=== PATIENT | male | born 1955 | race Caucasian/White ===

== ENCOUNTER 2019-06-28 18:28 | Inpatient (IN) | payer MEDICARE, MEDICAID ==
[~2019-06-28] VITALS: Ht 165.1 cm; Wt 49.5 kg
[~2019-06-28 18:28] MED LIST: ACYC-202 PO; ADV50500 INH; ALBU6.7H9 INH; ASPI-611 PO; BACL20TA PO; CLOP75TA35 PO; IPRA12.94 IH; LISI40TA4 PO; METF500T PO; PANT-47 PO; TIOT18CA7 IH
[2019-06-28] MEDS ORDERED: piperacillin/tazo 3.375gm/50ml 50 ML IV ONE (20:30)
[2019-06-28] MEDS ORDERED: VANCOMYCIN 1gm/H2O 200ml PB 200 ML IV ONE (20:30)
[2019-06-28] MEDS ORDERED: HYDROcodone/acetaminophen 5mg/325mg tablet PO ONE (20:50)
[2019-06-28 21:32] LABS: PARTIAL THROMBOPLASTIN TIME 28 SECONDS (22-32)
[2019-06-28 21:36] LABS: ALANINE AMINOTRANSFERASE 37 U/L (12-78); ALBUMIN 3.2 G/DL (3.4-5.0); ALKALINE PHOSPHATASE 87 IU/L (46-116); ANION GAP 7 (8-16); ASPARTATE AMINO TRANSFERASE 21 U/L (10-37); BILIRUBIN,TOTAL 0.2 MG/DL (0.1-1.0); BLOOD UREA NITROGEN 12 MG/DL (7-18); CALCIUM 8.6 MG/DL (8.5-10.1); CHLORIDE 108 MMOL/L (99-107); GLUCOSE 126 MG/DL (70-104); POTASSIUM 3.7 MMOL/L (3.5-5.1); SODIUM 139 MMOL/L (135-145); TOTAL CARBON DIOXIDE 23.9 MMOL/L (24-32); TOTAL PROTEIN 6.3 G/DL (6.4-8.2); eGFR > 90 ML/MIN
[2019-06-28 21:41] LABS: BASOPHILS % (AUTO) 0.7 % (0-1); EOSINOPHILS # (AUTO) 0.2 X10'3 (0-0.9); EOSINOPHILS % (AUTO) 3.8 % (0-6); HEMATOCRIT 29.6 % (42.0-52.0); HEMOGLOBIN 10.1 g/dl (14.0-17.9); LYMPHOCYTES # (AUTO) 1.7 X10'3 (1.1-4.8); LYMPHOCYTES % (AUTO) 28.5 % (21-51); MEAN CORPUSCULAR HEMOGLOBIN 34.1 PG (27.0-31.0); MEAN CORPUSCULAR HGB CONC 34.1 g/dL (33.0-36.5); MEAN CORPUSCULAR VOLUME 99.9 FL (78-98); MONOCYTES # (AUTO) 0.4 X10'3 (0-0.9); MONOCYTES % (AUTO) 7.4 % (2-12); NEUTROPHILS # (AUTO) 3.6 X10'3 (1.8-7.7); NEUTROPHILS % (AUTO) 59.6 % (42-75); PLATELET COUNT 419 X10'3 (140-440); RED BLOOD COUNT 2.97 X10'6 (4.70-6.10); RED CELL DISTRIBUTION WIDTH 13.3 % (11.5-14.5)
--- NOTE | 2019-06-28 22:00 | NUR ---
Received report from Suzie ROBERTSON from ED. Patient came up to floor via wheelchair. Bed locked & low, call light within reach.
[2019-06-28 22:15] VITALS: BP 165/81
[2019-06-28] MEDS ORDERED: FLO0.4C (23:09)
[2019-06-28] MEDS ORDERED: NORT50CA (23:09)
[2019-06-28] MEDS ORDERED: LIRA0.6P (23:09)
[2019-06-28] MEDS ORDERED: SIMV80TA89 (23:09)
[2019-06-29] VITALS (18 sets, daily range): BP systolic 105–155; BP diastolic 52–77
[2019-06-29] MEDS ORDERED: potassium CL 10mEq/100ml bag 100 ML IV PRN ×2 (00:05)
[2019-06-29] MEDS ORDERED: magnesium Cl slow-release 64mg tablet PO PRN (00:05)
[2019-06-29] MEDS ORDERED: magnesium 2GM in 50ml NS 50 ML IV PRN (00:05)
[2019-06-29] MEDS ORDERED: acetaminophen 325mg tablet PO PRN (00:05)
[2019-06-29] MEDS ORDERED: ondansetron/PF 4mg/2ml inj IV PRN ×2 (00:05→09:55)
[2019-06-29] MEDS ORDERED: magnesium 4gm in 100ml NS 100 ML IV PRN (00:05)
[2019-06-29] MEDS ORDERED: potassium Cl 20 mEq SR tablet PO PRN ×2 (00:05)
[2019-06-29] MEDS ORDERED: MESSAGE TO PHARMACY PO ONE (00:10)
[2019-06-29] MEDS ORDERED: glucagon, human recombinant 1mg kit SUBCUT PRN (00:10)
[2019-06-29] MEDS ORDERED: dextrose 50%-water 50ml dispensing syringe IV PRN ×2 (00:10)
[2019-06-29] MEDS ORDERED: dextrose ORAL solution 15 GM/59 ML bottle PO PRN (00:10)
[2019-06-29] MEDS: normal saline 1000ml 1,000 ML IV SCH ×2 (01:07→19:17)
[2019-06-29] MEDS ORDERED: non-formulary drug (Albuterol Sulfate (Proventil Hfa) 2 PUFFS) INH SCH (02:00)
[2019-06-29] MEDS: HYDROcodone/acetaminophen 5mg/325mg tablet PO PRN ×3 (03:24→12:48)
[2019-06-29] MEDS: HYDROmorphone inj. 0.5 MG/0.5 ML DISP.SYRIN IV PRN ×3 (04:38→17:53)
--- NOTE | 2019-06-29 06:10 | NUR ---
Patient in room [facility] 4012. I have received report from KAVITA ROBERTSON and had the opportunity to ask questions and assume patient care.
--- NOTE | 2019-06-29 06:29 | NUR ---
Problems reprioritized. Patient report given, questions answered & plan of care reviewed with Jessica ROBERTSON.
[2019-06-29] MEDS: K and/or MAG REPLACEMENT MC SCH ×2 (07:32→21:30)
[2019-06-29] MEDS: aspirin 81mg tablet.DR PO SCH (07:33)
[2019-06-29] MEDS: baclofen 10mg tablet PO SCH ×2 (07:33→12:41)
[2019-06-29] MEDS: lisinopril 20mg tablet PO SCH (07:33)
[2019-06-29] MEDS: vancomycin inj. 750 MG in normal saline 250ml IV soln 250 ML IV SCH ×2 (07:47→19:17)
[2019-06-29] MEDS ORDERED: vancomycin/NS 1 GM ADD-VANTAGE 250 ML IV SCH (08:00)
[2019-06-29] MEDS: ipratropium 0.5 MG/2.5ML nebule IH SCH ×3 (08:00→22:22)
[2019-06-29] MEDS: albuterol 2.5 MG/3 ML nebule NEB SCH ×3 (08:00→22:22)
--- NOTE | 2019-06-29 08:07 | NUR ---
DOWN TO THE OR.
[2019-06-29] MEDS ORDERED: sevoflurane 250ml liquid IH ONE (09:23)
[2019-06-29] MEDS ORDERED: midazolam 2 mg/2 ml injection ONE (09:33)
[2019-06-29] MEDS ORDERED: propofol inj 20 ML IV ONE (09:33)
[2019-06-29] MEDS ORDERED: fentaNYL/PF 50MCG/1 ML 2ML syringe ONE (09:33)
[2019-06-29] MEDS ORDERED: LIDOcaine 2% (20mg/ml) 5ml vial ONE (09:34)
[2019-06-29] MEDS ORDERED: BUPIVAcaine/PF 2.5 mg/ml (0.25%) 30ml vial ONE (09:44)
[2019-06-29] MEDS ORDERED: ringers solution, lacted 1,000 ML IV SCH (09:54)
[2019-06-29] MEDS ORDERED: meperidine/PF 25mg/ml syringe IV PRN ×3 (09:55)
[2019-06-29] MEDS ORDERED: morphine 4 MG/ML inj SYRINge IV PRN ×2 (09:55)
[2019-06-29] MEDS ORDERED: proCHLORperazine 10 MG/2 ml inj IV PRN (09:55)
--- NOTE | 2019-06-29 10:30 | NUR ---
ADMITTED TO PACU FROM OR ACCOMPANIED BY ANESTHESIA. INTIAL PHYSICAL ASSESSMENT DONE AND RECORDED. REPORT RECEIVED FROM ANESTHESIA. LEFT AND ELEVATED ON PILLOWS ICE APPLIED.
--- NOTE | 2019-06-29 11:30 | NUR ---
PACU DISCHARGE CRITERIA MET, REPORT GIVEN TO FLOOR. DENIES PAIN OR DISCOMFORT, TRANSFERRED TO ROOM IN STABLE GOOD CONDITION.
--- NOTE | 2019-06-29 16:22 | NUR ---
DM consult: Pt admit with cellulitis of left middle finger now s/p finger amputation today. Pt with A1c 10.3 seen at bedside. Pt reports he has had DM for several years and states he already knows what needs to be done to manage it. Pt states he checks his BG levels 2-3 times a day if he thinks he needs to however will check it less often if he is feeling fine. Pt states he takes his DM medications per rx and sees an MD q month. Pt provided with verbal protein education and written DM education with referral to outpatient DM class with verbal review. Pt agrees to double eggs QD at breakfast and double meat BIDLD, d/w dietary. Pt denies food allergies and reports difficulty chewing d/t missing teeth. Pt diet has been changed to mech soft. Pt agrees to chop all TID d/t surgery, d/w dietary. Pt reports diarrhea d/t medications and agrees to a banana at dinner tonight, d/w dietary. RD contact information provided. Will continue to follow. Addendum: 06/29/19 at [address] Amended: Links added.
[2019-06-29] MEDS: HYDROcodone/acetaminophen 10/325mg tab PO PRN ×2 (16:29→21:27)
--- NOTE | 2019-06-29 18:15 | NUR ---
Problems reprioritized. Patient report given, questions answered & plan of care reviewed with KAVITA ROBERTSON.
[2019-06-29] MEDS: insulin Lispro (HumaLOG) vial - multi-dose SQ SCH (19:10)
[2019-06-29] MEDS: insulin glargine (Lantus) pen - multi-dose SQ SCH (21:00)
[2019-06-29] MEDS: tamsulosin 0.4mg capsule PO SCH (21:27)
[2019-06-29] MEDS: dextrose ORAL solution 15 GM/59 ML bottle PO PRN ×2 (22:03→22:20)
--- NOTE | 2019-06-29 22:40 | NUR ---
Took BS for HS and reading was 73. Patient said he didn't feel well and was shaky. Gave patient a sandwich and rechecked BS and it read 28. Rechecked BS and reading was 31. Patient still awake and orientated. Gave 2 doses of dextrose. Rechecked BS in 15 min and reading was 68. Administered one dose of dextrose. Rechecked BS after 15 min and BS was 60. Administered another dose of dextrose. Rechecked BS 15 min after that dose and BS was 82. Called MD with critical BS results. Gave the patient a few snacks. Will recheck patients BS in the middle of the night.
[2019-06-30 02:00] VITALS: BP 122/48
[2019-06-30] MEDS: albuterol 2.5 MG/3 ML nebule NEB SCH ×4 (02:20→20:11)
[2019-06-30] MEDS: ipratropium 0.5 MG/2.5ML nebule IH SCH ×4 (02:20→20:11)
--- NOTE | 2019-06-30 02:20 | NUR ---
Rechecked patients BS due to being hypoglycemic earlier in shift. BS reading 287.
[2019-06-30] MEDS: HYDROcodone/acetaminophen 10/325mg tab PO PRN ×4 (03:52→20:19)
[2019-06-30 06:13] LABS: ALBUMIN 2.3 G/DL (3.4-5.0); ANION GAP 8 (8-16); BLOOD UREA NITROGEN 11 MG/DL (7-18); BUN/CREATININE RATIO 13.9 (5.4-32.0); CALCIUM 7.4 MG/DL (8.5-10.1); CHLORIDE 105 MMOL/L (99-107); CREATININE 0.79 MG/DL (0.60-1.10); GLUCOSE 325 MG/DL (70-104); MAGNESIUM 1.5 MG/DL (1.5-2.4); POTASSIUM 3.6 MMOL/L (3.5-5.1); SODIUM 137 MMOL/L (135-145); TOTAL CARBON DIOXIDE 23.9 MMOL/L (24-32); eGFR > 90 ML/MIN
[2019-06-30 06:25] LABS: BASOPHILS % (AUTO) 0.6 % (0-1); EOSINOPHILS # (AUTO) 0.2 X10'3 (0-0.9); HEMATOCRIT 26.3 % (42.0-52.0); HEMOGLOBIN 9.1 g/dl (14.0-17.9); LYMPHOCYTES # (AUTO) 0.8 X10'3 (1.1-4.8); LYMPHOCYTES % (AUTO) 13.9 % (21-51); MEAN CORPUSCULAR HEMOGLOBIN 34.4 PG (27.0-31.0); MEAN CORPUSCULAR HGB CONC 34.7 g/dL (33.0-36.5); MEAN CORPUSCULAR VOLUME 99.1 FL (78-98); MEAN PLATELET VOLUME 7.1 FL (7.4-10.4); MONOCYTES # (AUTO) 0.3 X10'3 (0-0.9); MONOCYTES % (AUTO) 5.4 % (2-12); NEUTROPHILS # (AUTO) 4.6 X10'3 (1.8-7.7); NEUTROPHILS % (AUTO) 77.1 % (42-75); PLATELET COUNT 308 X10'3 (140-440); RED BLOOD COUNT 2.65 X10'6 (4.70-6.10); RED CELL DISTRIBUTION WIDTH 13.5 % (11.5-14.5)
--- NOTE | 2019-06-30 06:26 | NUR ---
Problems reprioritized. Patient report given, questions answered & plan of care reviewed with Krysten ROBERTSON.
[2019-06-30 07:05] VITALS: BP 148/62
[2019-06-30] MEDS: K and/or MAG REPLACEMENT MC SCH ×2 (07:24→20:00)
[2019-06-30] MEDS: vancomycin inj. 750 MG in normal saline 250ml IV soln 250 ML IV SCH ×2 (07:41→19:09)
[2019-06-30] MEDS: lisinopril 20mg tablet PO SCH (07:42)
[2019-06-30] MEDS: aspirin 81mg tablet.DR PO SCH (07:42)
[2019-06-30] MEDS: heparin, porcine 5000 units/ml vial SQ SCH ×2 (07:42→20:20)
[2019-06-30] MEDS: HYDROmorphone inj. 0.5 MG/0.5 ML DISP.SYRIN IV PRN (09:13)
[2019-06-30 12:14] VITALS: BP 138/54
[2019-06-30] MEDS ORDERED: HYDROcodone/acetaminophen 10/325mg tab PO PRN (13:45)
--- NOTE | 2019-06-30 14:41 | NUR ---
PT REFUSING INSULIN TREATMENT FOR BLOOD SUGAR OF 261. EDUCATED PT ABOUT DIABETIC MANAGEMENT AND DAMAGING RISKS OF UNTREATED HIGH BLOOD SUGARS. PT HAD EPISODE OF LOW BLOOD SUGAR AFTER INSULIN TREATMENT LAST NIGHT AND STATES "ABSOLUTELY NOT, NOT LETTING THAT HAPPEN AGAIN". WILL CONTINUE TO MONITOR.
[2019-06-30 18:00] VITALS: BP 124/75
[2019-06-30] MEDS ORDERED: VANCOMYCIN LEVEL IV ONE (18:30)
[2019-06-30] MEDS: tamsulosin 0.4mg capsule PO SCH (20:18)
[2019-06-30] MEDS: insulin glargine (Lantus) pen - multi-dose SQ SCH (21:00)
[2019-06-30 22:00] VITALS: BP 120/37
[2019-06-30] MEDS: insulin Lispro (HumaLOG) vial - multi-dose SQ SCH (22:33)
[2019-07-01] MEDS: normal saline 1000ml 1,000 ML IV SCH (00:03)
[2019-07-01] MEDS: albuterol 2.5 MG/3 ML nebule NEB SCH ×2 (02:14→09:29)
[2019-07-01] MEDS: ipratropium 0.5 MG/2.5ML nebule IH SCH ×2 (02:14→09:29)
[2019-07-01] MEDS: HYDROcodone/acetaminophen 10/325mg tab PO PRN ×2 (03:15→11:52)
[2019-07-01 06:03] LABS: BASOPHILS % (AUTO) 0.5 % (0-1); EOSINOPHILS # (AUTO) 0.3 X10'3 (0-0.9); EOSINOPHILS % (AUTO) 5.5 % (0-6); HEMATOCRIT 25.6 % (42.0-52.0); HEMOGLOBIN 8.7 g/dl (14.0-17.9); LYMPHOCYTES # (AUTO) 1.1 X10'3 (1.1-4.8); LYMPHOCYTES % (AUTO) 21.3 % (21-51); MEAN CORPUSCULAR HEMOGLOBIN 33.9 PG (27.0-31.0); MEAN CORPUSCULAR HGB CONC 33.8 g/dL (33.0-36.5); MEAN CORPUSCULAR VOLUME 100.5 FL (78-98); MEAN PLATELET VOLUME 7.3 FL (7.4-10.4); MONOCYTES # (AUTO) 0.3 X10'3 (0-0.9); MONOCYTES % (AUTO) 6.9 % (2-12); NEUTROPHILS # (AUTO) 3.3 X10'3 (1.8-7.7); NEUTROPHILS % (AUTO) 65.8 % (42-75); PLATELET COUNT 299 X10'3 (140-440); RED BLOOD COUNT 2.55 X10'6 (4.70-6.10); RED CELL DISTRIBUTION WIDTH 13.1 % (11.5-14.5)
[2019-07-01 06:04] LABS: ALBUMIN 2.3 G/DL (3.4-5.0); ANION GAP 3 (8-16); BLOOD UREA NITROGEN 10 MG/DL (7-18); BUN/CREATININE RATIO 11.6 (5.4-32.0); CHLORIDE 109 MMOL/L (99-107); CREATININE 0.86 MG/DL (0.60-1.10); GLUCOSE 219 MG/DL (70-104); MAGNESIUM 1.5 MG/DL (1.5-2.4); POTASSIUM 3.8 MMOL/L (3.5-5.1); SODIUM 140 MMOL/L (135-145); TOTAL CARBON DIOXIDE 27.7 MMOL/L (24-32); eGFR 89 ML/MIN
[2019-07-01 06:50] VITALS: BP_SYST 120; BP_SYST 174; BP_DIAS 44; BP_DIAS 90
[2019-07-01] MEDS: aspirin 81mg tablet.DR PO SCH (07:51)
[2019-07-01] MEDS: heparin, porcine 5000 units/ml vial SQ SCH (07:52)
[2019-07-01] MEDS: lisinopril 20mg tablet PO SCH (07:52)
[2019-07-01] MEDS: K and/or MAG REPLACEMENT MC SCH (08:00)
[2019-07-01] MEDS: vancomycin inj. 750 MG in normal saline 250ml IV soln 250 ML IV SCH (08:41)
[2019-07-01] MEDS ORDERED: pneumococcal 23-VAL P-sac vacc 25 mcg/0.5ml vial IMVAC ONE (09:45)
[2019-07-01 10:45] VITALS: BP 92/53
[2019-07-01] MEDS ORDERED: LINE600T12 PO (10:57)
[2019-07-01] MEDS ORDERED: LISI-600 PO (10:57)
[2019-07-01] MEDS ORDERED: SITA100T11 PO (10:57)
[2019-07-01] MEDS ORDERED: BUDE10.22 INH (10:57)
[2019-07-01] MEDS ORDERED: METF-950 PO (10:57)
[2019-07-01] MEDS ORDERED: SIMV-45 PO (10:57)
[2019-07-01] MEDS ORDERED: GLIP5TAB13 PO (10:57)
--- NOTE | 2019-07-01 12:00 | NUR ---
PT REFUSED 1200 BLOOD SUGAR CHECK.
[2019-07-01] MEDS ORDERED: VANCOMYCIN 1gm/H2O 200ml PB 250 ML IV SCH (19:00)
[2019-07-03] MEDS ORDERED: VANCOMYCIN LEVEL IV ONE (06:30)
== END 2019-07-01 14:00 | disposition home or self-care (01) | DRG 513 ==
LOC: ER 18:28 → ED HOLD 20:50 → ORTHO 4S 22:10
PROVIDERS: ADMIT Internal Medicine; ATTEND Internal Medicine
PROC: 0X6R0Z1 Detachment at Left Middle Finger, High, Open Approach (ICD-10-PCS; principal; 2019-06-29 09:23)
DX: M65.88 Other synovitis and tenosynovitis, other site (principal); M86.642 Other chronic osteomyelitis, left hand; L03.012 Cellulitis of left finger; E11.69 Type 2 diabetes mellitus with other specified complication; E78.00 Pure hypercholesterolemia, unspecified; E78.5 Hyperlipidemia, unspecified; I10 Essential (primary) hypertension; I25.10 Atherosclerotic heart disease of native coronary artery without angina pectoris; J43.9 Emphysema, unspecified; N40.0 Benign prostatic hyperplasia without lower urinary tract symptoms; F32.9 Major depressive disorder, single episode, unspecified; K21.9 Gastro-esophageal reflux disease without esophagitis; Z60.2 Problems related to living alone; F17.210 Nicotine dependence, cigarettes, uncomplicated; Z79.82 Long term (current) use of aspirin; Z79.899 Other long term (current) drug therapy; I25.2 Old myocardial infarction; Z90.49 Acquired absence of other specified parts of digestive tract; Z79.84 Long term (current) use of oral hypoglycemic drugs
CPT/HCPCS: 36415; 71045; 73140; 80048; 80053; 80202; 82948; 83036; 83735; 84145; 85025; 85610; 85651; 85730; 87070; 87075; 87081; 87102; 88305; 88311; 93005; 94640; 94760; 99285; A4618; A6222; A6449; A7000; G0378; J1170; J1644; J1815; J2001; J2250; J2543; J2704; J3010; J3370; J3490; J7030; J7050; J7120

== ENCOUNTER 2020-04-20 10:41 | Day surgery (SDC) | payer BC, MEDICAID ==
[~2020-04-20] VITALS: Ht 165.1 cm; Wt 45.5 kg
[~2020-04-20 10:41] MED LIST changes: -ACYC-202 PO; -ADV50500 INH; -BACL20TA PO; +BUDE10.22 INH; -CLOP75TA35 PO; +FLO0.4C; +GLIP5TAB13 PO; -IPRA12.94 IH; +LIRA0.6P; +LISI-600 PO; -LISI40TA4 PO; -METF500T PO; -PANT-47 PO; +SIMV-45 PO; +SITA100T11 PO
[2020-04-20] MEDS ORDERED: MIDAZolam 5mg/5ml vial ONE (10:49)
[2020-04-20] MEDS ORDERED: fentaNYL/PF 50MCG/1 ML 2ML syringe ONE (10:49)
[2020-04-20 10:50] VITALS: BP 173/107
[2020-04-20] MEDS ORDERED: VALA100031 PO ×2 (11:34)
[2020-04-20] MEDS ORDERED: NORT25CA PO (11:35)
[2020-04-20] MEDS ORDERED: ALOG12.5 PO (11:37)
[2020-04-20] MEDS ORDERED: BACL20TA PO (11:38)
[2020-04-20] MEDS ORDERED: PANT-47 PO (11:39)
[2020-04-20 11:45] VITALS: BP 129/72
[2020-04-20 11:55] VITALS: BP 116/73
[2020-04-20 12:05] VITALS: BP 126/62
[2020-04-20 12:15] VITALS: BP 126/70
== END 2020-04-20 13:44 | disposition home or self-care (01) ==
LOC: GI LAB 10:41
PROVIDERS: ATTEND Internal Medicine Gastroenterology
DX: D50.9 Iron deficiency anemia, unspecified (principal); K63.89 Other specified diseases of intestine; K64.8 Other hemorrhoids; K57.30 Diverticulosis of large intestine without perforation or abscess without bleeding; K62.89 Other specified diseases of anus and rectum; E11.9 Type 2 diabetes mellitus without complications; J44.9 Chronic obstructive pulmonary disease, unspecified; I10 Essential (primary) hypertension; Z86.73 Personal history of transient ischemic attack (TIA), and cerebral infarction without residual deficits; F17.210 Nicotine dependence, cigarettes, uncomplicated; Z72.89 Other problems related to lifestyle; Z79.899 Other long term (current) drug therapy
CPT/HCPCS: 45380; 99153; G0500; J2250; J3010; J7040; 99152; A4620

== ENCOUNTER 2023-10-11 11:31 | Emergency (ER) | payer BC, MEDICAID ==
[~2023-10-11] VITALS: Ht 152.4 cm; Wt 50.0 kg
[~2023-10-11 11:31] MED LIST changes: +ALBU6.7H14 INH; -ALBU6.7H9 INH; +ALOG12.5 PO; +BACL20TA PO; -BUDE10.22 INH; -GLIP5TAB13 PO; -LISI-600 PO; +NORT25CA PO; +PANT-47 PO; -SITA100T11 PO; -TIOT18CA7 IH; +VALA100031 PO
[2023-10-11 11:43] VITALS: TEMP 97.4
[2023-10-11] MEDS: ketorolac trometh. 30mg/ml inj. IM ONE (12:40)
[2023-10-11] MEDS: LORazepam 1 MG tablet PO ONE (12:49)
[2023-10-11] MEDS: LIDOcaine 1% 30ml preserv. free vial SQ STA (12:49)
[2023-10-11] MEDS: ketorolac tromethamine 15mg/ml inj. IM ONE (12:51)
[2023-10-11] MEDS: ondansetron/PF 4mg/2ml inj IM ONE (13:38)
[2023-10-11] MEDS ORDERED: SULF1TAB49 PO (14:01)
[2023-10-11] MEDS ORDERED: ACET-2006 PO (14:01)
[2023-10-11] MEDS ORDERED: BACI1PAC7 TP (14:02)
[2023-10-11] MEDS: ondansetron 4mg rapidly disintigrating tab PO ONE (14:20)
[2023-10-11 14:31] VITALS: BP 127/63; PULSE 100; RESP 17; O2SAT 97
== END 2023-10-11 14:46 | disposition home or self-care (01) ==
LOC: ER 11:31
DX: L03.012 Cellulitis of left finger (principal); E78.00 Pure hypercholesterolemia, unspecified; I10 Essential (primary) hypertension; I25.2 Old myocardial infarction; J44.9 Chronic obstructive pulmonary disease, unspecified; E11.9 Type 2 diabetes mellitus without complications
CPT/HCPCS: 10060; 73140; 82948; 96372; 99284; J1885; A6258; A6449

== ENCOUNTER 2024-09-13 18:48 | Inpatient (IN) | payer BC, MEDICAID ==
[~2024-09-13] VITALS: Ht 165.1 cm; Wt 48.0 kg
[~2024-09-13 18:48] MED LIST changes: +CYCL-1 PO; -FLO0.4C; +FLO0.4C PO
[2024-09-13] MEDS ORDERED: iohexol 350MG/ML 100ml bottle IV ONE (19:04)
[2024-09-13 19:43] LABS: BASOPHILS % (AUTO) 0.4 % (0-1); EOSINOPHILS # (AUTO) 0.1 X10'3 (0-0.9); EOSINOPHILS % (AUTO) 1.4 % (0-6); HEMOGLOBIN 9.7 g/dl (14.0-17.9); LYMPHOCYTES % (AUTO) 13.3 % (21-51); MEAN CORPUSCULAR HEMOGLOBIN 33.4 PG (27.0-31.0); MEAN CORPUSCULAR HGB CONC 34.6 g/dL (33.0-36.5); MEAN CORPUSCULAR VOLUME 96.6 FL (78-98); MEAN PLATELET VOLUME 8.1 FL (7.4-10.4); MONOCYTES # (AUTO) 0.5 X10'3 (0-0.9); MONOCYTES % (AUTO) 6.6 % (2-12); NEUTROPHILS # (AUTO) 5.7 X10'3 (1.8-7.7); NEUTROPHILS % (AUTO) 78.3 % (42-75); PLATELET COUNT 233 X10'3 (140-440); RED CELL DISTRIBUTION WIDTH 13.1 % (11.5-14.5); WHITE BLOOD COUNT 7.2 X10'3 (4.5-11.0)
[2024-09-13 19:53] LABS: APTT 24 SECONDS (22-32); PROTHROMBIN TIME 10.6 SECONDS (9.0-12.0)
[2024-09-13 19:54] LABS: ALBUMIN 2.8 G/DL (3.4-5.0); ANION GAP 8 (8-16); BLOOD UREA NITROGEN 25 MG/DL (7-18); BUN/CREATININE RATIO 19.8 (10.0-20.0); CALCIUM 8.4 MG/DL (8.5-10.1); CHLORIDE 103 MMOL/L (99-107); CREATININE 1.26 MG/DL (0.60-1.10); ETHANOL < 10 MG/DL (<10); GLUCOSE 224 MG/DL (70-104); POTASSIUM 4.6 MMOL/L (3.5-5.1); SODIUM 137 MMOL/L (135-145); TOTAL CARBON DIOXIDE 26.1 MMOL/L (24-32); eCRCL 38 ML/MIN; eGFR 57 ML/MIN
[2024-09-13 22:33] LABS: BILIRUBIN,URINE NEGATIVE (Neg); CLARITY,URINE CLEAR (Clear); COLOR,URINE YELLOW (Yellow); GLUCOSE, URINE 500 mg/dl (Neg); KETONES,URINE NEGATIVE (Neg); LEUKOCYTE ESTERASE ,URINE NEGATIVE (Neg); NITRITES, URINE NEGATIVE (Neg); OCCULT BLOOD,URINE SMALL (Neg); PH,URINE 5.5 (4.8-8.0); PROTEIN,URINE 30 mg/dl (Neg); UROBILINOGEN,URINE 0.2 E.U/dL (0.2-1.0)
[2024-09-13 22:40] LABS: UA COLLECTION TYPE CLN CATCH MIDSTREAM
[2024-09-13 22:47] LABS: BACTERIA,URINE NONE SEEN /HPF (Neg); RBC,URINE 0-2 /HPF (0-2); SQUAMOUS EPITHELIAL CELL,UR NONE SEEN /LPF (FEW); WBC,URINE 0-4 /HPF (0-4)
[2024-09-13 23:29] LABS: URINE AMPHETAMINE SCREEN NEGATIVE (Neg); URINE BARBITUATE SCREEN NEGATIVE (Neg); URINE BENZODIAZEPINES SCREEN NEGATIVE (Neg); URINE CANNABINOID SCREEN POSITIVE (Neg); URINE COCAINE SCREEN NEGATIVE (Neg); URINE METHADONE SCREEN NEGATIVE (Neg); URINE OPIATE SCREEN NEGATIVE (Neg); URINE PHENCYCLIDINE SCREEN NEGATIVE (Neg)
[2024-09-14] MEDS ORDERED: SACU1TAB PO (01:22)
[2024-09-14] MEDS ORDERED: LISI20TA28 (01:22)
[2024-09-14] MEDS ORDERED: VENL37.589 PO (01:22)
[2024-09-14] MEDS ORDERED: ATOR40TA71 (01:22)
[2024-09-14] MEDS ORDERED: mag hydrox/Alum hydrox/simeth 30ml oral suspension PO PRN (02:10)
[2024-09-14] MEDS ORDERED: magnesium sulf-water 2g/50mL 50 ML IV PRN (02:10)
[2024-09-14] MEDS ORDERED: magnesium Cl slow-release 64mg tablet PO PRN (02:10)
[2024-09-14] MEDS ORDERED: ondansetron/PF 4mg/2ml inj IV PRN (02:10)
[2024-09-14] MEDS ORDERED: HYDROcodone/acetaminophen 5mg/325mg tablet PO PRN (02:10)
[2024-09-14] MEDS ORDERED: magnesium sulf-water 4G/100mL 100 ML IV PRN (02:10)
[2024-09-14] MEDS ORDERED: magnesium hydroxide 30ml (MOM) UD suspension PO PRN (02:10)
[2024-09-14] MEDS ORDERED: acetaminophen 325mg tablet PO PRN (02:10)
[2024-09-14] MEDS ORDERED: potassium Cl 20 mEq SR tablet PO PRN (02:10)
[2024-09-14] MEDS ORDERED: bisacodyl 10mg suppository rectal RC PRN (02:10)
[2024-09-14] MEDS ORDERED: potassium Cl 40MEQ/1/2NS 520ml 520 ML IV PRN (02:10)
[2024-09-14 03:16] LABS: HEMOGLOBIN A1C 8.9 % (4.5-6.2)
[2024-09-14 03:18] LABS: APTT 24 SECONDS (22-32); PROTHROMBIN TIME 10.4 SECONDS (9.0-12.0)
[2024-09-14 03:26] LABS: POTASSIUM 4.7 MMOL/L (3.5-5.1)
[2024-09-14 04:09] LABS: BILIRUBIN,URINE NEGATIVE (Neg); CLARITY,URINE CLEAR (Clear); COLOR,URINE YELLOW (Yellow); GLUCOSE, URINE 500 mg/dl (Neg); KETONES,URINE NEGATIVE (Neg); LEUKOCYTE ESTERASE ,URINE NEGATIVE (Neg); NITRITES, URINE NEGATIVE (Neg); OCCULT BLOOD,URINE SMALL (Neg); PROTEIN,URINE 30 mg/dl (Neg); UA COLLECTION TYPE URINAL; UROBILINOGEN,URINE 0.2 E.U/dL (0.2-1.0)
[2024-09-14 04:18] LABS: BACTERIA,URINE FEW /HPF (Neg); RBC,URINE 0-2 /HPF (0-2); SQUAMOUS EPITHELIAL CELL,UR NONE SEEN /LPF (FEW); WBC,URINE 0-4 /HPF (0-4)
[2024-09-14] MEDS ORDERED: clopidogrel 300mg tablet PO ONE (05:55)
[2024-09-14] MEDS ORDERED: baclofen 10mg tablet PO PRN (06:10)
[2024-09-14] MEDS ORDERED: glucagon, human recombinant 1mg kit SUBCUT PRN (06:25)
[2024-09-14] MEDS ORDERED: DEXTROSE 15 GM of carb/4 tabs (each vial/BOTTLE has 4 tablets) PO PRN (06:25)
[2024-09-14] MEDS: docusate sod 100mg capsule PO SCH (07:08)
[2024-09-14] MEDS: aspirin 81mg, enteric-coated 1 TAB TABLET.DR PO SCH (07:08)
[2024-09-14] MEDS: pantoprazole 40mg Tablet.DR PO SCH (07:08)
[2024-09-14] MEDS: cyclobenzaprine 10mg tablet PO SCH (07:09)
[2024-09-14] MEDS: clopidogrel 75mg tablet PO ONE (07:09)
[2024-09-14] MEDS: heparin, porcine 5000 units/ml vial SQ SCH (07:10)
[2024-09-14] MEDS: INSULIN LISPRO 100 UNIT/ML INSULN.PEN MULTI-DOSE SQ SCH (07:35)
[2024-09-14] MEDS: K and/or MAG REPLACEMENT MC SCH (08:00)
[2024-09-14] MEDS: atorvastatin 20mg tablet PO SCH (08:00)
[2024-09-14] MEDS ORDERED: albuterol 2.5 MG/3 ML nebule NEB PRN (08:00)
[2024-09-14] MEDS: sacubitril/valsartan 24mg-26mg tablet PO SCH (09:40)
[2024-09-14] MEDS: morphine 2 MG/ML inj. syringe IV PRN (09:40)
[2024-09-14 17:18] LABS: URINE AMPHETAMINE SCREEN NEGATIVE (Neg); URINE BARBITUATE SCREEN NEGATIVE (Neg); URINE BENZODIAZEPINES SCREEN NEGATIVE (Neg); URINE CANNABINOID SCREEN POSITIVE (Neg); URINE COCAINE SCREEN NEGATIVE (Neg); URINE METHADONE SCREEN NEGATIVE (Neg); URINE OPIATE SCREEN NEGATIVE (Neg); URINE PHENCYCLIDINE SCREEN NEGATIVE (Neg)
[2024-09-14] MEDS ORDERED: LORazepam 2 mg/ml vial IV PRN (18:25)
[2024-09-14] MEDS: folic acid 1mg/0.2ml inj IV SCH (19:24)
[2024-09-14] MEDS: thiamine 100mg/ml 2ml inj. IV SCH (20:36)
[2024-09-14] MEDS: normal saline 1000ml 1,000 ML IV SCH (20:40)
[2024-09-14] MEDS: insulin glargine (Lantus) pen - multi-dose SQ SCH (20:52)
[2024-09-14] MEDS ORDERED: nortriptyline 25mg capsule PO SCH (21:00)
[2024-09-14 22:01] VITALS: PULSE 84; RESP 16; O2SAT 100
[2024-09-14 23:34] VITALS: BP 232/101; PULSE 103; RESP 22; TEMP 97.8; O2SAT 99
[2024-09-15] VITALS (11 sets, daily range): BP systolic 106–179; BP diastolic 49–86; PULSE 79–101; RESP 15–22; TEMP 97–98.2; O2SAT 96–100
[2024-09-15] MEDS: lisinopril 20mg tablet PO SCH (00:35)
[2024-09-15] MEDS: tamsulosin 0.4mg capsule PO SCH (00:35)
[2024-09-15 06:34] LABS: BASOPHILS # (AUTO) 0.1 X10'3 (0-0.2); BASOPHILS % (AUTO) 0.6 % (0-1); EOSINOPHILS # (AUTO) 0.3 X10'3 (0-0.9); EOSINOPHILS % (AUTO) 2.7 % (0-6); HEMATOCRIT 37.4 % (42.0-52.0); HEMOGLOBIN 12.4 g/dl (14.0-17.9); LYMPHOCYTES % (AUTO) 20.5 % (21-51); MEAN CORPUSCULAR HEMOGLOBIN 32.5 PG (27.0-31.0); MEAN CORPUSCULAR HGB CONC 33.1 g/dL (33.0-36.5); MEAN CORPUSCULAR VOLUME 98.3 FL (78-98); MONOCYTES # (AUTO) 0.6 X10'3 (0-0.9); MONOCYTES % (AUTO) 5.8 % (2-12); NEUTROPHILS % (AUTO) 70.4 % (42-75); PLATELET COUNT 345 X10'3 (140-440); RED BLOOD COUNT 3.81 X10'6 (4.70-6.10); RED CELL DISTRIBUTION WIDTH 13.3 % (11.5-14.5)
[2024-09-15 07:00] LABS: PROTHROMBIN TIME 10.2 SECONDS (9.0-12.0)
[2024-09-15 07:14] LABS: ALANINE AMINOTRANSFERASE 43 U/L (12-78); ALBUMIN/GLOBULIN RATIO 0.9 (1.1-1.5); ALKALINE PHOSPHATASE 91 IU/L (46-116); AMYLASE 46 U/L (25-115); ANION GAP 11 (8-16); ASPARTATE AMINO TRANSFERASE 42 U/L (10-37); BILIRUBIN,TOTAL 0.2 MG/DL (0.1-1.0); BLOOD UREA NITROGEN 32 MG/DL (7-18); BUN/CREATININE RATIO 26.4 (10.0-20.0); CHLORIDE 108 MMOL/L (99-107); CHOL/HDL RATIO 2.6 (0.00-4.99); CHOLESTEROL 179 MG/DL (0-200); CREATININE 1.21 MG/DL (0.60-1.10); HDL CHOLESTEROL 70 MG/DL (35-60); LDL CHOLESTEROL 95 MG/DL (50-100); LIPASE 8 U/L (16-77); MAGNESIUM 1.9 MG/DL (1.5-2.4); PHOSPHORUS 4.4 MG/DL (2.3-4.5); POTASSIUM 3.2 MMOL/L (3.5-5.1); SODIUM 143 MMOL/L (135-145); TOTAL CARBON DIOXIDE 23.6 MMOL/L (24-32); TOTAL PROTEIN 6.3 G/DL (6.4-8.2); TRIGLYCERIDES 80 MG/DL (20-135); eCRCL 40 ML/MIN; eGFR 59 ML/MIN
[2024-09-15] MEDS: dextrose 50%-water 50ml dispensing syringe IV PRN (07:21)
[2024-09-15 07:31] LABS: GLUCOSE 46 MG/DL (70-104)
[2024-09-15] MEDS: clopidogrel 75mg tablet PO SCH (09:23)
[2024-09-15] MEDS: LORazepam 1 MG tablet PO PRN (09:41)
[2024-09-15] MEDS ORDERED: LORazepam 2 mg/ml vial IV PRN (11:05)
[2024-09-15] MEDS ORDERED: LORazepam 1 MG tablet PO PRN (11:45)
[2024-09-15] MEDS: INSULIN LISPRO 100 UNIT/ML INSULN.PEN MULTI-DOSE SQ SCH (12:00)
[2024-09-15] MEDS: HEPARIN DRIP DVT/PE -**PHARMACIST TO DOSE IV ONE (19:45)
[2024-09-15] MEDS: metoprolol tartrate 25mg tablet PO SCH (20:00)
[2024-09-15] MEDS ORDERED: iohexol 350MG/ML 100ml bottle IV ONE (20:09)
[2024-09-15] MEDS ORDERED: iohexol 350 MG/ML 50ML vial IV ONE (20:09)
[2024-09-15] MEDS ORDERED: heparin 10,000 units/1 ML INJ IV PRN (20:25)
[2024-09-15] MEDS: heparin 10,000 units/1 ML INJ IV ONE (20:52)
[2024-09-15] MEDS: heparin 25,000 UNIT/250ml bag 250 ML IV PRN (20:53)
[2024-09-15] MEDS: EMPAGLIFLOZIN 25 MG TABLET PO SCH (21:01)
[2024-09-15] MEDS: potassium Cl 20 mEq SR tablet PO PRN (21:02)
[2024-09-15] MEDS: MESSAGE TO NURSING IV ONE (21:05)
[2024-09-15 21:31] LABS: BASOPHILS % (AUTO) 0.5 % (0-1); EOSINOPHILS # (AUTO) 0.2 X10'3 (0-0.9); EOSINOPHILS % (AUTO) 3.9 % (0-6); HEMATOCRIT 32.8 % (42.0-52.0); HEMOGLOBIN 11.3 g/dl (14.0-17.9); LYMPHOCYTES # (AUTO) 1.4 X10'3 (1.1-4.8); LYMPHOCYTES % (AUTO) 23.5 % (21-51); MEAN CORPUSCULAR HEMOGLOBIN 33.2 PG (27.0-31.0); MEAN CORPUSCULAR HGB CONC 34.3 g/dL (33.0-36.5); MEAN CORPUSCULAR VOLUME 96.7 FL (78-98); MEAN PLATELET VOLUME 7.9 FL (7.4-10.4); MONOCYTES # (AUTO) 0.4 X10'3 (0-0.9); MONOCYTES % (AUTO) 6.3 % (2-12); NEUTROPHILS % (AUTO) 65.8 % (42-75); PLATELET COUNT 257 X10'3 (140-440); RED BLOOD COUNT 3.39 X10'6 (4.70-6.10); RED CELL DISTRIBUTION WIDTH 13.5 % (11.5-14.5)
[2024-09-15] MEDS: insulin glargine (Lantus) pen - multi-dose SQ SCH (21:39)
[2024-09-15 21:58] LABS: INR 1.1 INR; PROTHROMBIN TIME 11.2 SECONDS (9.0-12.0)
[2024-09-15 22:04] LABS: APTT > 139 SECONDS (22-32)
[2024-09-16] VITALS (9 sets, daily range): BP systolic 106–172; BP diastolic 47–76; PULSE 76–96; RESP 12–21; TEMP 96.9–97.8; O2SAT 97–100
[2024-09-16 02:13] LABS: PROTHROMBIN TIME 10.6 SECONDS (9.0-12.0)
[2024-09-16] MEDS: MESSAGE TO NURSING IV ONE ×3 (03:59→16:10)
[2024-09-16 07:34] LABS: BASOPHILS % (AUTO) 0.4 % (0-1); EOSINOPHILS # (AUTO) 0.1 X10'3 (0-0.9); HEMATOCRIT 32.4 % (42.0-52.0); HEMOGLOBIN 10.8 g/dl (14.0-17.9); LYMPHOCYTES % (AUTO) 14.2 % (21-51); MEAN CORPUSCULAR HEMOGLOBIN 32.5 PG (27.0-31.0); MEAN CORPUSCULAR HGB CONC 33.2 g/dL (33.0-36.5); MEAN CORPUSCULAR VOLUME 97.9 FL (78-98); MEAN PLATELET VOLUME 8.1 FL (7.4-10.4); MONOCYTES # (AUTO) 0.4 X10'3 (0-0.9); MONOCYTES % (AUTO) 5.5 % (2-12); NEUTROPHILS # (AUTO) 5.2 X10'3 (1.8-7.7); NEUTROPHILS % (AUTO) 77.9 % (42-75); PLATELET COUNT 257 X10'3 (140-440); RED BLOOD COUNT 3.31 X10'6 (4.70-6.10); RED CELL DISTRIBUTION WIDTH 13.4 % (11.5-14.5); WHITE BLOOD COUNT 6.7 X10'3 (4.5-11.0)
[2024-09-16 07:44] LABS: ALANINE AMINOTRANSFERASE 37 U/L (12-78); ALBUMIN 2.8 G/DL (3.4-5.0); ALBUMIN/GLOBULIN RATIO 0.9 (1.1-1.5); ALKALINE PHOSPHATASE 84 IU/L (46-116); AMYLASE 34 U/L (25-115); ANION GAP 9 (8-16); ASPARTATE AMINO TRANSFERASE 36 U/L (10-37); BILIRUBIN,TOTAL 0.2 MG/DL (0.1-1.0); BLOOD UREA NITROGEN 29 MG/DL (7-18); BUN/CREATININE RATIO 28.2 (10.0-20.0); CALCIUM 7.8 MG/DL (8.5-10.1); CHLORIDE 109 MMOL/L (99-107); CREATININE 1.03 MG/DL (0.60-1.10); LIPASE 8 U/L (16-77); MAGNESIUM 1.8 MG/DL (1.5-2.4); PHOSPHORUS 4.2 MG/DL (2.3-4.5); POTASSIUM 4.6 MMOL/L (3.5-5.1); SODIUM 141 MMOL/L (135-145); TOTAL CARBON DIOXIDE 22.6 MMOL/L (24-32); TOTAL PROTEIN 5.8 G/DL (6.4-8.2); eCRCL 41 ML/MIN; eGFR 71 ML/MIN
[2024-09-16 07:45] LABS: GLUCOSE 39 MG/DL (70-104)
[2024-09-16] MEDS ORDERED: metoprolol tartrate 1mg/ml inj IV PRN (15:20)
[2024-09-16] MEDS ORDERED: nitroGLYCERIN 0.4mg SUBLingual tab SL PRN (15:20)
[2024-09-16] MEDS ORDERED: aminophylline 500mg/20ml vial IV PRN (15:20)
[2024-09-16] MEDS: INSULIN LISPRO 100 UNIT/ML INSULN.PEN MULTI-DOSE SQ SCH (17:00)
[2024-09-17] VITALS (28 sets, daily range): BP systolic 99–170; BP diastolic 48–85; PULSE 70–120; RESP 10–20; TEMP 97.6–98.9; O2SAT 30–100
[2024-09-17] MEDS ORDERED: MESSAGE TO NURSING IV ONE (00:40)
[2024-09-17] MEDS: MESSAGE TO NURSING IV ONE ×3 (01:16→11:15)
[2024-09-17 03:24] LABS: BASOPHILS % (AUTO) 0.6 % (0-1); EOSINOPHILS # (AUTO) 0.3 X10'3 (0-0.9); EOSINOPHILS % (AUTO) 4.6 % (0-6); HEMATOCRIT 32.5 % (42.0-52.0); HEMOGLOBIN 11.3 g/dl (14.0-17.9); LYMPHOCYTES # (AUTO) 1.5 X10'3 (1.1-4.8); LYMPHOCYTES % (AUTO) 26.2 % (21-51); MEAN CORPUSCULAR HEMOGLOBIN 33.6 PG (27.0-31.0); MEAN CORPUSCULAR HGB CONC 34.6 g/dL (33.0-36.5); MEAN CORPUSCULAR VOLUME 97.2 FL (78-98); MEAN PLATELET VOLUME 7.8 FL (7.4-10.4); MONOCYTES # (AUTO) 0.4 X10'3 (0-0.9); MONOCYTES % (AUTO) 6.4 % (2-12); NEUTROPHILS # (AUTO) 3.5 X10'3 (1.8-7.7); NEUTROPHILS % (AUTO) 62.2 % (42-75); PLATELET COUNT 267 X10'3 (140-440); RED BLOOD COUNT 3.35 X10'6 (4.70-6.10); RED CELL DISTRIBUTION WIDTH 13.2 % (11.5-14.5); WHITE BLOOD COUNT 5.6 X10'3 (4.5-11.0)
[2024-09-17 03:32] LABS: PROTHROMBIN TIME 10.4 SECONDS (9.0-12.0)
[2024-09-17 03:35] LABS: ALANINE AMINOTRANSFERASE 36 U/L (12-78); ALBUMIN/GLOBULIN RATIO 0.9 (1.1-1.5); ALKALINE PHOSPHATASE 96 IU/L (46-116); AMYLASE 33 U/L (25-115); ANION GAP 7 (8-16); ASPARTATE AMINO TRANSFERASE 21 U/L (10-37); BILIRUBIN,TOTAL 0.2 MG/DL (0.1-1.0); BLOOD UREA NITROGEN 27 MG/DL (7-18); BUN/CREATININE RATIO 18.6 (10.0-20.0); CALCIUM 8.1 MG/DL (8.5-10.1); CHLORIDE 107 MMOL/L (99-107); CREATININE 1.45 MG/DL (0.60-1.10); GLUCOSE 166 MG/DL (70-104); LIPASE 8 U/L (16-77); MAGNESIUM 1.7 MG/DL (1.5-2.4); PHOSPHORUS 4.2 MG/DL (2.3-4.5); POTASSIUM 4.8 MMOL/L (3.5-5.1); SODIUM 138 MMOL/L (135-145); TOTAL PROTEIN 6.3 G/DL (6.4-8.2); eCRCL 29 ML/MIN; eGFR 48 ML/MIN
[2024-09-17] MEDS ORDERED: lisinopril 20mg tablet PO SCH (08:00)
[2024-09-17] MEDS: normal saline 500ml IV soln 500 ML IV ONE (08:20)
[2024-09-17] MEDS: normal saline 1000ml 1,000 ML IV SCH (08:20)
[2024-09-17] MEDS: regadenoson 0.4mg/5ml syringe IV PRN (08:27)
[2024-09-17] MEDS ORDERED: heparin 10,000 units/1 ML INJ ONE (08:55)
[2024-09-17] MEDS: EMPAGLIFLOZIN 10 MG TABLET PO SCH (09:46)
[2024-09-17] MEDS: spironolactone 25 MG tablet PO SCH (09:47)
[2024-09-17] MEDS ORDERED: LIDOcaine 1%/PF 5ML 10 MG/ML VIAL ONE (11:34)
[2024-09-17] MEDS: ipratropium/albuterol 3ml nebule NEB ONE (12:11)
[2024-09-17] MEDS ORDERED: sevoflurane 250ml liquid IH ONE (12:15)
[2024-09-17] MEDS ORDERED: midazolam 1 mg/ML 2ml injection ONE (12:36)
[2024-09-17] MEDS ORDERED: fentaNYL /PF 50mcg/ml 5ml ampule ONE (12:36)
[2024-09-17] MEDS ORDERED: etomidate 2mg/ml inj. ONE (13:37)
[2024-09-17] MEDS ORDERED: rocuronium 10mg/ml inj IV ONE ×2 (13:37→15:02)
[2024-09-17] MEDS ORDERED: ceFAZolin 1000mg inj ONE ×2 (13:37)
[2024-09-17 14:05] LABS: ISTAT CREATININE 1.1 mg/dL (0.8-1.3); ISTAT HGB 7.8 g/dl (14.0-17.9); ISTAT IONIZED CALCIUM 1.1 mmol/L (1.03-1.32); ISTAT K 3.4 mmol/L (3.5-5.1); POC BUN/CREATININE RATIO 21.8 (5.4-32.0)
[2024-09-17 14:20] LABS: ABG BASE EXCESS -9.8 mmol/L (-2.0-3.0); ABG OXYGEN SATURATION 99.1 % (94.0-98.0); ABG PCO2 (T) 33.1 mmHg (35.0-48.0); ABG PH (T) 7.296 (7.350-7.450); ABG PO2 (T) 251.8 mmHg (83.0-108.0); FCOHb 0.3 % (0.5-1.5); FHHb 0.9 % (0.0-5.0); FMetHb 0.3 % (0.0-1.5); FO2Hb 98.5 % (94.0-98.0); TOTAL HEMOGLOBIN 9.9 G/dl (13.5-17.5)
[2024-09-17] MEDS ORDERED: sodium bicarbonate (8.4%) inj. 1 MEQ/ML ML ONE ×3 (15:02→16:51)
[2024-09-17 15:59] LABS: ABG BASE EXCESS -6.6 mmol/L (-2.0-3.0); ABG OXYGEN SATURATION 99.3 % (94.0-98.0); ABG PCO2 (T) 36.4 mmHg (35.0-48.0); ABG PH (T) 7.331 (7.350-7.450); ABG PO2 (T) 235.8 mmHg (83.0-108.0); FCOHb 0.5 % (0.5-1.5); FHHb 0.7 % (0.0-5.0); FMetHb 0.3 % (0.0-1.5); FO2Hb 98.5 % (94.0-98.0); MODE VENT - AC; TOTAL HEMOGLOBIN 7.9 G/dl (13.5-17.5)
[2024-09-17] MEDS ORDERED: ipratropium/albuterol 3ml nebule NEB PRN (16:05)
[2024-09-17] MEDS ORDERED: protamine sulfate 10mg/ml inj. ONE (16:30)
[2024-09-17] MEDS ORDERED: HYDROmorphone 1 mg/ml syringe ONE (16:32)
[2024-09-17] MEDS: DESMOPRESSIN IV ONE (16:45)
[2024-09-17] MEDS: NORMAL SALINE IV ONE (16:45)
[2024-09-17 16:55] LABS: APTT > 139 SECONDS (22-32)
[2024-09-17 16:56] LABS: ISTAT HGB 8.5 g/dl (14.0-17.9); ISTAT IONIZED CALCIUM 0.96 mmol/L (1.03-1.32); ISTAT K 4.2 mmol/L (3.5-5.1)
[2024-09-17] MEDS: propofol 1000mg/100ml bottle 100 ML IV SCH (17:53)
[2024-09-17] MEDS: FENTANYL-0.9 % NACL/PF 100 ML IV SCH (17:54)
[2024-09-17 18:06] LABS: ABG BASE EXCESS -6.5 mmol/L (-2.0-3.0); ABG HCO3 18.1 mmol/L (21.0-28.0); ABG OXYGEN SATURATION 99.1 % (94.0-98.0); ABG PO2 (T) 216.5 mmHg (83.0-108.0); FCOHb 0.3 % (0.5-1.5); FHHb 0.9 % (0.0-5.0); FMetHb 0.3 % (0.0-1.5); FO2Hb 98.5 % (94.0-98.0); MODE VENT - SIMV; PEEP 5 cm H2O; RESPIRATORY RATE 12 b/min; TIDAL VOLUME 450 mL; TOTAL HEMOGLOBIN 10.2 G/dl (13.5-17.5)
[2024-09-17] MEDS ORDERED: UNABLE TO OBTAIN (18:15)
[2024-09-17] MEDS ORDERED: niCARDipine-NS 40mg/200ml IVPB 200 ML IV PRN (18:20)
[2024-09-17 18:37] LABS: BASOPHILS % (AUTO) 0.1 % (0-1); EOSINOPHILS % (AUTO) 0.2 % (0-6); HEMATOCRIT 29.9 % (42.0-52.0); HEMOGLOBIN 9.9 g/dl (14.0-17.9); LYMPHOCYTES # (AUTO) 0.8 X10'3 (1.1-4.8); LYMPHOCYTES % (AUTO) 6.4 % (21-51); MEAN CORPUSCULAR HEMOGLOBIN 30.5 PG (27.0-31.0); MEAN CORPUSCULAR HGB CONC 33.1 g/dL (33.0-36.5); MEAN CORPUSCULAR VOLUME 92.3 FL (78-98); MEAN PLATELET VOLUME 7.9 FL (7.4-10.4); MONOCYTES # (AUTO) 0.6 X10'3 (0-0.9); NEUTROPHILS % (AUTO) 88.3 % (42-75); PLATELET COUNT 211 X10'3 (140-440); RED BLOOD COUNT 3.24 X10'6 (4.70-6.10); RED CELL DISTRIBUTION WIDTH 16.2 % (11.5-14.5); WHITE BLOOD COUNT 12.5 X10'3 (4.5-11.0)
[2024-09-17 18:48] LABS: INR 1.2 INR; PROTHROMBIN TIME 12.6 SECONDS (9.0-12.0)
[2024-09-17 18:49] LABS: ALANINE AMINOTRANSFERASE 19 U/L (12-78); ALBUMIN 2.1 G/DL (3.4-5.0); ALBUMIN/GLOBULIN RATIO 1.2 (1.1-1.5); ALKALINE PHOSPHATASE 50 IU/L (46-116); ANION GAP 15 (8-16); ASPARTATE AMINO TRANSFERASE 22 U/L (10-37); BILIRUBIN,TOTAL 0.9 MG/DL (0.1-1.0); BLOOD UREA NITROGEN 27 MG/DL (7-18); CALCIUM 6.1 MG/DL (8.5-10.1); CHLORIDE 115 MMOL/L (99-107); GLUCOSE 192 MG/DL (70-104); MAGNESIUM 1.3 MG/DL (1.5-2.4); PHOSPHORUS 3.9 MG/DL (2.3-4.5); POTASSIUM 3.7 MMOL/L (3.5-5.1); SODIUM 151 MMOL/L (135-145); TOTAL CARBON DIOXIDE 21.2 MMOL/L (24-32); TOTAL PROTEIN 3.8 G/DL (6.4-8.2); eCRCL 42 ML/MIN; eGFR 74 ML/MIN
[2024-09-17] MEDS ORDERED: magnesium sulf-water 2g/50mL 50 ML IV PRN (19:15)
[2024-09-17] MEDS ORDERED: magnesium sulf-water 4G/100mL 100 ML IV PRN (19:15)
[2024-09-17] MEDS: albumin (Human) 5% 250ml 250 ML IV ONE ×3 (19:58→23:08)
[2024-09-17] MEDS: ceFOXitin sod/dextrose 2g/50ml 50 ML IV SCH (21:14)
[2024-09-17] MEDS: midazolam 100mg in NS 100ml 100 ML IV SCH (23:15)
[2024-09-17] MEDS: midazolam 1 mg/ML 2ml injection IV ONE (23:16)
[2024-09-18] VITALS (32 sets, daily range): BP systolic 95–180; BP diastolic 47–84; PULSE 82–115; RESP 11–23; O2SAT 97–100
[2024-09-18] MEDS: albumin (Human) 5% 250ml 250 ML IV ONE ×2 (00:11→00:17)
[2024-09-18] MEDS: NORepinephrine 8mg/ 250ml NS 250 ML IV PRN (02:09)
[2024-09-18 02:48] LABS: BASOPHILS % (AUTO) 0.1 % (0-1); EOSINOPHILS % (AUTO) 0.1 % (0-6); HEMATOCRIT 23.4 % (42.0-52.0); LYMPHOCYTES # (AUTO) 0.5 X10'3 (1.1-4.8); LYMPHOCYTES % (AUTO) 7.2 % (21-51); MEAN CORPUSCULAR HEMOGLOBIN 31.2 PG (27.0-31.0); MEAN CORPUSCULAR HGB CONC 34.1 g/dL (33.0-36.5); MEAN CORPUSCULAR VOLUME 91.3 FL (78-98); MEAN PLATELET VOLUME 7.8 FL (7.4-10.4); MONOCYTES # (AUTO) 0.6 X10'3 (0-0.9); MONOCYTES % (AUTO) 7.4 % (2-12); NEUTROPHILS # (AUTO) 6.5 X10'3 (1.8-7.7); NEUTROPHILS % (AUTO) 85.2 % (42-75); PLATELET COUNT 219 X10'3 (140-440); RED BLOOD COUNT 2.56 X10'6 (4.70-6.10); RED CELL DISTRIBUTION WIDTH 16.9 % (11.5-14.5); WHITE BLOOD COUNT 7.6 X10'3 (4.5-11.0)
[2024-09-18 02:55] LABS: INR 1.1 INR; PROTHROMBIN TIME 11.9 SECONDS (9.0-12.0)
[2024-09-18 03:02] LABS: ALANINE AMINOTRANSFERASE 28 U/L (12-78); ALBUMIN 3.5 G/DL (3.4-5.0); ALBUMIN/GLOBULIN RATIO 2.9 (1.1-1.5); ALKALINE PHOSPHATASE 37 IU/L (46-116); AMYLASE 16 U/L (25-115); ANION GAP 13 (8-16); ASPARTATE AMINO TRANSFERASE 28 U/L (10-37); BLOOD UREA NITROGEN 35 MG/DL (7-18); BUN/CREATININE RATIO 22.9 (10.0-20.0); CALCIUM 6.4 MG/DL (8.5-10.1); CHLORIDE 115 MMOL/L (99-107); CREATININE 1.53 MG/DL (0.60-1.10); GLUCOSE 145 MG/DL (70-104); LIPASE 6 U/L (16-77); MAGNESIUM 1.8 MG/DL (1.5-2.4); PHOSPHORUS 4.9 MG/DL (2.3-4.5); POTASSIUM 3.4 MMOL/L (3.5-5.1); SODIUM 150 MMOL/L (135-145); TOTAL CARBON DIOXIDE 22.3 MMOL/L (24-32); TOTAL PROTEIN 4.7 G/DL (6.4-8.2); eCRCL 28 ML/MIN; eGFR 45 ML/MIN
[2024-09-18 03:33] LABS: ABG BASE EXCESS -6.2 mmol/L (-2.0-3.0); ABG HCO3 19.4 mmol/L (21.0-28.0); ABG OXYGEN SATURATION 98.4 % (94.0-98.0); ABG PCO2 (T) 36.6 mmHg (35.0-48.0); ABG PH (T) 7.336 (7.350-7.450); ABG PO2 (T) 123.8 mmHg (83.0-108.0); FCOHb 1.5 % (0.5-1.5); FHHb 1.6 % (0.0-5.0); FMetHb 0.3 % (0.0-1.5); FO2Hb 96.6 % (94.0-98.0); MODE SIMV; PATIENT TEMPERATURE 35.8; PEEP 5 cm H2O; RESPIRATORY RATE 14 b/min; TIDAL VOLUME 450 mL; TOTAL HEMOGLOBIN 8.4 G/dl (13.5-17.5)
[2024-09-18] MEDS: potassium Cl 40MEQ/270ML bag 270 ML IV PRN (05:40)
[2024-09-18] MEDS: HYDROmorphone inj. 0.5 MG/0.5 ML DISP.SYRIN IV PRN (11:22)
[2024-09-18] MEDS ORDERED: naloxone 0.4 mg/ml inj IV PRN (14:10)
[2024-09-18] MEDS: HYDROmorph/NS 0.2 mg/ml PCA 100 ML IV SCH (15:13)
[2024-09-18] MEDS ORDERED: CALC1TAB82 PO (16:48)
[2024-09-18] MEDS ORDERED: CHOL10006 PO (16:48)
[2024-09-18] MEDS: hydrALAZINE 20mg/ml inj. IV PRN (17:12)
[2024-09-18] MEDS: ceFOXitin sod/dextrose 2g/50ml 50 ML IV SCH (19:51)
[2024-09-18] MEDS: potassium 20mEq/D5LR 1,000 ML IV SCH (23:02)
[2024-09-19] VITALS (22 sets, daily range): BP systolic 128–186; BP diastolic 47–85; PULSE 102–117; RESP 10–23; TEMP 97.4; O2SAT 94–100
[2024-09-19 03:01] LABS: BASOPHILS % (AUTO) 0.2 % (0-1); EOSINOPHILS % (AUTO) 0.1 % (0-6); HEMATOCRIT 26.9 % (42.0-52.0); HEMOGLOBIN 9.2 g/dl (14.0-17.9); LYMPHOCYTES # (AUTO) 0.7 X10'3 (1.1-4.8); LYMPHOCYTES % (AUTO) 15.4 % (21-51); MEAN CORPUSCULAR HEMOGLOBIN 31.6 PG (27.0-31.0); MEAN CORPUSCULAR HGB CONC 34.3 g/dL (33.0-36.5); MEAN CORPUSCULAR VOLUME 92.1 FL (78-98); MEAN PLATELET VOLUME 8.1 FL (7.4-10.4); MONOCYTES # (AUTO) 0.6 X10'3 (0-0.9); MONOCYTES % (AUTO) 12.5 % (2-12); NEUTROPHILS # (AUTO) 3.5 X10'3 (1.8-7.7); NEUTROPHILS % (AUTO) 71.8 % (42-75); PLATELET COUNT 215 X10'3 (140-440); RED BLOOD COUNT 2.92 X10'6 (4.70-6.10); RED CELL DISTRIBUTION WIDTH 17.5 % (11.5-14.5); WHITE BLOOD COUNT 4.8 X10'3 (4.5-11.0)
[2024-09-19 03:06] LABS: INR 1.1 INR
[2024-09-19 03:19] LABS: ALANINE AMINOTRANSFERASE 21 U/L (12-78); ALBUMIN/GLOBULIN RATIO 1.2 (1.1-1.5); ALKALINE PHOSPHATASE 53 IU/L (46-116); AMYLASE 14 U/L (25-115); ANION GAP 11 (8-16); ASPARTATE AMINO TRANSFERASE 29 U/L (10-37); BILIRUBIN,TOTAL 0.4 MG/DL (0.1-1.0); BLOOD UREA NITROGEN 45 MG/DL (7-18); BUN/CREATININE RATIO 23.8 (10.0-20.0); CALCIUM 7.6 MG/DL (8.5-10.1); CHLORIDE 116 MMOL/L (99-107); CREATININE 1.89 MG/DL (0.60-1.10); GLUCOSE 142 MG/DL (70-104); LIPASE 6 U/L (16-77); PHOSPHORUS 4.1 MG/DL (2.3-4.5); POTASSIUM 4.3 MMOL/L (3.5-5.1); SODIUM 148 MMOL/L (135-145); TOTAL CARBON DIOXIDE 20.7 MMOL/L (24-32); TOTAL PROTEIN 5.5 G/DL (6.4-8.2); eCRCL 22 ML/MIN; eGFR 35 ML/MIN
[2024-09-19 04:03] LABS: MAGNESIUM 1.9 MG/DL (1.5-2.4)
[2024-09-19] MEDS: metoprolol tartrate 25mg tablet PO ONE (11:18)
[2024-09-19] MEDS: metoprolol tartrate 25mg tablet PO SCH (20:39)
[2024-09-20] VITALS (7 sets, daily range): BP systolic 128–163; BP diastolic 69–78; PULSE 84–98; RESP 14–20; TEMP 97–97.4; O2SAT 93–98
[2024-09-20 09:28] LABS: BASOPHILS % (AUTO) 0.1 % (0-1); EOSINOPHILS % (AUTO) 0.1 % (0-6); HEMATOCRIT 31.4 % (42.0-52.0); HEMOGLOBIN 10.6 g/dl (14.0-17.9); LYMPHOCYTES # (AUTO) 0.7 X10'3 (1.1-4.8); LYMPHOCYTES % (AUTO) 10.2 % (21-51); MEAN CORPUSCULAR HEMOGLOBIN 31.3 PG (27.0-31.0); MEAN CORPUSCULAR HGB CONC 33.8 g/dL (33.0-36.5); MEAN CORPUSCULAR VOLUME 92.6 FL (78-98); MEAN PLATELET VOLUME 8.1 FL (7.4-10.4); MONOCYTES # (AUTO) 0.9 X10'3 (0-0.9); MONOCYTES % (AUTO) 13.6 % (2-12); PLATELET COUNT 243 X10'3 (140-440); RED BLOOD COUNT 3.39 X10'6 (4.70-6.10); RED CELL DISTRIBUTION WIDTH 17.3 % (11.5-14.5); WHITE BLOOD COUNT 6.5 X10'3 (4.5-11.0)
[2024-09-20 09:42] LABS: ALANINE AMINOTRANSFERASE 24 U/L (12-78); ALBUMIN 2.8 G/DL (3.4-5.0); ALBUMIN/GLOBULIN RATIO 0.9 (1.1-1.5); ALKALINE PHOSPHATASE 78 IU/L (46-116); ANION GAP 6 (8-16); ASPARTATE AMINO TRANSFERASE 26 U/L (10-37); BILIRUBIN,TOTAL 0.5 MG/DL (0.1-1.0); BLOOD UREA NITROGEN 39 MG/DL (7-18); BUN/CREATININE RATIO 23.4 (10.0-20.0); CALCIUM 8.6 MG/DL (8.5-10.1); CHLORIDE 113 MMOL/L (99-107); CREATININE 1.67 MG/DL (0.60-1.10); GLUCOSE 175 MG/DL (70-104); POTASSIUM 5.4 MMOL/L (3.5-5.1); SODIUM 144 MMOL/L (135-145); TOTAL CARBON DIOXIDE 25.4 MMOL/L (24-32); TOTAL PROTEIN 5.8 G/DL (6.4-8.2); eCRCL 28 ML/MIN; eGFR 41 ML/MIN
[2024-09-20] MEDS: multivitamins, therapeutics tablet PO SCH (13:20)
[2024-09-20] MEDS: folic acid 1mg tablet PO SCH (13:20)
[2024-09-20] MEDS: thiamine 100mg tablet PO SCH (13:21)
[2024-09-20] MEDS: DEXTROSE 15 GM of carb/4 tabs (each vial/BOTTLE has 4 tablets) PO PRN (17:12)
[2024-09-20] MEDS ORDERED: HYDROcodone/acetaminophen 10/325mg tab PO PRN (19:30)
[2024-09-20] MEDS: ringers solution, lacted 1,000 ML IV SCH (21:39)
[2024-09-21] VITALS (8 sets, daily range): BP systolic 102–155; BP diastolic 60–82; PULSE 51–104; RESP 13–22; TEMP 97–97.3; O2SAT 92–99
[2024-09-21] MEDS: HYDROcodone/acetaminophen 10/325mg tab PO PRN (01:31)
[2024-09-21] MEDS: PCA WASTE DOCUMENTATION 1 MG ML MC PRN (05:11)
[2024-09-21 06:38] LABS: BASOPHILS % (AUTO) 0.1 % (0-1); EOSINOPHILS % (AUTO) 0.3 % (0-6); HEMATOCRIT 29.2 % (42.0-52.0); HEMOGLOBIN 9.8 g/dl (14.0-17.9); LYMPHOCYTES # (AUTO) 0.7 X10'3 (1.1-4.8); LYMPHOCYTES % (AUTO) 11.1 % (21-51); MEAN CORPUSCULAR HEMOGLOBIN 31.6 PG (27.0-31.0); MEAN CORPUSCULAR HGB CONC 33.5 g/dL (33.0-36.5); MEAN CORPUSCULAR VOLUME 94.3 FL (78-98); MEAN PLATELET VOLUME 8.1 FL (7.4-10.4); MONOCYTES # (AUTO) 0.6 X10'3 (0-0.9); MONOCYTES % (AUTO) 9.6 % (2-12); NEUTROPHILS # (AUTO) 5.2 X10'3 (1.8-7.7); NEUTROPHILS % (AUTO) 78.9 % (42-75); PLATELET COUNT 235 X10'3 (140-440); RED CELL DISTRIBUTION WIDTH 17.6 % (11.5-14.5); WHITE BLOOD COUNT 6.5 X10'3 (4.5-11.0)
[2024-09-21 06:40] LABS: ALANINE AMINOTRANSFERASE 24 U/L (12-78); ALBUMIN 2.5 G/DL (3.4-5.0); ALBUMIN/GLOBULIN RATIO 0.9 (1.1-1.5); ALKALINE PHOSPHATASE 76 IU/L (46-116); ANION GAP 12 (8-16); ASPARTATE AMINO TRANSFERASE 22 U/L (10-37); BILIRUBIN,TOTAL 0.6 MG/DL (0.1-1.0); BLOOD UREA NITROGEN 41 MG/DL (7-18); BUN/CREATININE RATIO 23.4 (10.0-20.0); CALCIUM 8.3 MG/DL (8.5-10.1); CHLORIDE 107 MMOL/L (99-107); CREATININE 1.75 MG/DL (0.60-1.10); GLUCOSE 175 MG/DL (70-104); POTASSIUM 4.7 MMOL/L (3.5-5.1); SODIUM 141 MMOL/L (135-145); TOTAL CARBON DIOXIDE 21.8 MMOL/L (24-32); TOTAL PROTEIN 5.3 G/DL (6.4-8.2); eCRCL 27 ML/MIN; eGFR 39 ML/MIN
[2024-09-22] VITALS (7 sets, daily range): BP systolic 120–157; BP diastolic 60–99; PULSE 78–109; RESP 14–24; TEMP 97–98; O2SAT 92–100
[2024-09-22 07:05] LABS: BASOPHILS % (AUTO) 0.3 % (0-1); EOSINOPHILS # (AUTO) 0.1 X10'3 (0-0.9); EOSINOPHILS % (AUTO) 1.9 % (0-6); HEMATOCRIT 26.9 % (42.0-52.0); HEMOGLOBIN 9.2 g/dl (14.0-17.9); LYMPHOCYTES # (AUTO) 0.7 X10'3 (1.1-4.8); LYMPHOCYTES % (AUTO) 11.1 % (21-51); MEAN CORPUSCULAR HEMOGLOBIN 31.4 PG (27.0-31.0); MEAN CORPUSCULAR HGB CONC 34.1 g/dL (33.0-36.5); MEAN CORPUSCULAR VOLUME 92.1 FL (78-98); MEAN PLATELET VOLUME 7.7 FL (7.4-10.4); MONOCYTES # (AUTO) 0.6 X10'3 (0-0.9); MONOCYTES % (AUTO) 8.5 % (2-12); NEUTROPHILS # (AUTO) 5.2 X10'3 (1.8-7.7); NEUTROPHILS % (AUTO) 78.2 % (42-75); PLATELET COUNT 262 X10'3 (140-440); RED BLOOD COUNT 2.93 X10'6 (4.70-6.10); RED CELL DISTRIBUTION WIDTH 16.4 % (11.5-14.5); WHITE BLOOD COUNT 6.6 X10'3 (4.5-11.0)
[2024-09-22 07:33] LABS: ALANINE AMINOTRANSFERASE 22 U/L (12-78); ALBUMIN 2.3 G/DL (3.4-5.0); ALBUMIN/GLOBULIN RATIO 0.9 (1.1-1.5); ALKALINE PHOSPHATASE 85 IU/L (46-116); ANION GAP 9 (8-16); ASPARTATE AMINO TRANSFERASE 22 U/L (10-37); BILIRUBIN,TOTAL 0.6 MG/DL (0.1-1.0); BLOOD UREA NITROGEN 42 MG/DL (7-18); BUN/CREATININE RATIO 24.4 (10.0-20.0); CALCIUM 8.1 MG/DL (8.5-10.1); CHLORIDE 106 MMOL/L (99-107); CREATININE 1.72 MG/DL (0.60-1.10); GLUCOSE 189 MG/DL (70-104); SODIUM 138 MMOL/L (135-145); TOTAL CARBON DIOXIDE 23.1 MMOL/L (24-32); eCRCL 27 ML/MIN; eGFR 40 ML/MIN
[2024-09-22 07:51] LABS: TOTAL CELLS COUNTED 100
[2024-09-22 07:52] LABS: ANISOCYTOSIS 1+; BURR CELLS FEW; PLATELET ESTIMATE NORMAL
[2024-09-23] VITALS (9 sets, daily range): BP systolic 112–152; BP diastolic 53–69; PULSE 55–93; RESP 12–17; TEMP 97.3–98; O2SAT 92–98
[2024-09-23 06:56] LABS: BASOPHILS % (AUTO) 0.1 % (0-1); EOSINOPHILS # (AUTO) 0.3 X10'3 (0-0.9); EOSINOPHILS % (AUTO) 3.7 % (0-6); HEMATOCRIT 25.7 % (42.0-52.0); HEMOGLOBIN 8.7 g/dl (14.0-17.9); LYMPHOCYTES # (AUTO) 1.2 X10'3 (1.1-4.8); LYMPHOCYTES % (AUTO) 14.7 % (21-51); MEAN CORPUSCULAR HEMOGLOBIN 31.1 PG (27.0-31.0); MEAN CORPUSCULAR HGB CONC 33.9 g/dL (33.0-36.5); MEAN CORPUSCULAR VOLUME 91.8 FL (78-98); MEAN PLATELET VOLUME 7.9 FL (7.4-10.4); MONOCYTES # (AUTO) 0.7 X10'3 (0-0.9); MONOCYTES % (AUTO) 8.7 % (2-12); NEUTROPHILS % (AUTO) 72.8 % (42-75); PLATELET COUNT 263 X10'3 (140-440); RED BLOOD COUNT 2.79 X10'6 (4.70-6.10); RED CELL DISTRIBUTION WIDTH 16.1 % (11.5-14.5); WHITE BLOOD COUNT 8.3 X10'3 (4.5-11.0)
[2024-09-23 07:01] LABS: ALANINE AMINOTRANSFERASE 23 U/L (12-78); ALBUMIN 2.1 G/DL (3.4-5.0); ALBUMIN/GLOBULIN RATIO 0.8 (1.1-1.5); ALKALINE PHOSPHATASE 87 IU/L (46-116); ANION GAP 9 (8-16); ASPARTATE AMINO TRANSFERASE 19 U/L (10-37); BILIRUBIN,TOTAL 0.6 MG/DL (0.1-1.0); BLOOD UREA NITROGEN 39 MG/DL (7-18); BUN/CREATININE RATIO 21.8 (10.0-20.0); CALCIUM 7.9 MG/DL (8.5-10.1); CHLORIDE 107 MMOL/L (99-107); CREATININE 1.79 MG/DL (0.60-1.10); GLUCOSE 118 MG/DL (70-104); POTASSIUM 3.8 MMOL/L (3.5-5.1); SODIUM 141 MMOL/L (135-145); TOTAL CARBON DIOXIDE 24.8 MMOL/L (24-32); TOTAL PROTEIN 4.6 G/DL (6.4-8.2); eCRCL 26 ML/MIN; eGFR 38 ML/MIN
[2024-09-23] MEDS: lactose-reduced food (Ensure Enlive) - 237ml bottle PO SCH (08:11)
[2024-09-23 10:08] LABS: TOTAL CELLS COUNTED 100
[2024-09-23 10:09] LABS: ANISOCYTOSIS 1+; PLATELET ESTIMATE NORMAL
[2024-09-23] MEDS: ringers solution, lacted 1,000 ML IV SCH (15:42)
[2024-09-24 06:00] VITALS: BP 100/57; PULSE 84; RESP 16; TEMP 97.8; O2SAT 97
[2024-09-24 06:07] LABS: BASOPHILS % (AUTO) 0.4 % (0-1); EOSINOPHILS # (AUTO) 0.2 X10'3 (0-0.9); EOSINOPHILS % (AUTO) 2.5 % (0-6); HEMATOCRIT 28.7 % (42.0-52.0); HEMOGLOBIN 9.7 g/dl (14.0-17.9); LYMPHOCYTES # (AUTO) 1.1 X10'3 (1.1-4.8); LYMPHOCYTES % (AUTO) 12.9 % (21-51); MEAN CORPUSCULAR HEMOGLOBIN 31.6 PG (27.0-31.0); MEAN CORPUSCULAR HGB CONC 33.9 g/dL (33.0-36.5); MEAN CORPUSCULAR VOLUME 93.1 FL (78-98); MEAN PLATELET VOLUME 7.9 FL (7.4-10.4); MONOCYTES # (AUTO) 0.7 X10'3 (0-0.9); MONOCYTES % (AUTO) 7.9 % (2-12); NEUTROPHILS # (AUTO) 6.6 X10'3 (1.8-7.7); NEUTROPHILS % (AUTO) 76.3 % (42-75); PLATELET COUNT 281 X10'3 (140-440); RED BLOOD COUNT 3.08 X10'6 (4.70-6.10); RED CELL DISTRIBUTION WIDTH 16.1 % (11.5-14.5); WHITE BLOOD COUNT 8.7 X10'3 (4.5-11.0)
[2024-09-24 06:27] LABS: ALANINE AMINOTRANSFERASE 25 U/L (12-78); ALBUMIN 2.3 G/DL (3.4-5.0); ALBUMIN/GLOBULIN RATIO 0.8 (1.1-1.5); ALKALINE PHOSPHATASE 103 IU/L (46-116); ANION GAP 4 (8-16); BILIRUBIN,TOTAL 0.5 MG/DL (0.1-1.0); BLOOD UREA NITROGEN 34 MG/DL (7-18); BUN/CREATININE RATIO 15.9 (10.0-20.0); CALCIUM 7.9 MG/DL (8.5-10.1); CHLORIDE 106 MMOL/L (99-107); CREATININE 2.14 MG/DL (0.60-1.10); GLUCOSE 225 MG/DL (70-104); SODIUM 138 MMOL/L (135-145); TOTAL CARBON DIOXIDE 27.7 MMOL/L (24-32); TOTAL PROTEIN 5.2 G/DL (6.4-8.2); eCRCL 22 ML/MIN; eGFR 31 ML/MIN
[2024-09-24 06:44] LABS: ASPARTATE AMINO TRANSFERASE 24 U/L (10-37); POTASSIUM 4.5 MMOL/L (3.5-5.1)
[2024-09-24 09:00] VITALS: RESP 18; O2SAT 96
[2024-09-24 10:00] VITALS: BP 95/52; PULSE 66; RESP 18; TEMP 97.3; O2SAT 98
[2024-09-24] MEDS ORDERED: insulin regular, human 10 units/0.1 ml syringe IV ONE (12:55)
[2024-09-24] MEDS: INSULIN LISPRO 100 UNIT/ML INSULN.PEN MULTI-DOSE SQ STA (13:25)
[2024-09-24 18:00] VITALS: BP 130/73; PULSE 75; RESP 18; TEMP 98; O2SAT 92
[2024-09-24 20:00] VITALS: RESP 16
[2024-09-24] MEDS: insulin glargine (Lantus) pen - multi-dose SQ SCH (21:56)
[2024-09-24 22:00] VITALS: BP 143/58; PULSE 92; RESP 14; TEMP 98.3; O2SAT 97
[2024-09-25] VITALS (8 sets, daily range): BP systolic 109–137; BP diastolic 49–65; PULSE 66–88; RESP 15–17; TEMP 97.4–98.5; O2SAT 95–100
[2024-09-25 05:30] LABS: BASOPHILS % (AUTO) 0.5 % (0-1); EOSINOPHILS # (AUTO) 0.3 X10'3 (0-0.9); EOSINOPHILS % (AUTO) 2.9 % (0-6); HEMATOCRIT 27.3 % (42.0-52.0); HEMOGLOBIN 9.1 g/dl (14.0-17.9); LYMPHOCYTES # (AUTO) 1.3 X10'3 (1.1-4.8); LYMPHOCYTES % (AUTO) 13.6 % (21-51); MEAN CORPUSCULAR HEMOGLOBIN 31.1 PG (27.0-31.0); MEAN CORPUSCULAR HGB CONC 33.4 g/dL (33.0-36.5); MEAN PLATELET VOLUME 7.5 FL (7.4-10.4); MONOCYTES # (AUTO) 0.8 X10'3 (0-0.9); MONOCYTES % (AUTO) 8.3 % (2-12); NEUTROPHILS # (AUTO) 7.2 X10'3 (1.8-7.7); NEUTROPHILS % (AUTO) 74.7 % (42-75); PLATELET COUNT 304 X10'3 (140-440); RED BLOOD COUNT 2.93 X10'6 (4.70-6.10); RED CELL DISTRIBUTION WIDTH 16.4 % (11.5-14.5); WHITE BLOOD COUNT 9.6 X10'3 (4.5-11.0)
[2024-09-25 05:55] LABS: ALANINE AMINOTRANSFERASE 17 U/L (12-78); ALBUMIN 2.1 G/DL (3.4-5.0); ALBUMIN/GLOBULIN RATIO 0.8 (1.1-1.5); ALKALINE PHOSPHATASE 89 IU/L (46-116); ANION GAP 5 (8-16); ASPARTATE AMINO TRANSFERASE 12 U/L (10-37); BILIRUBIN,TOTAL 0.4 MG/DL (0.1-1.0); BLOOD UREA NITROGEN 35 MG/DL (7-18); BUN/CREATININE RATIO 19.3 (10.0-20.0); CALCIUM 7.9 MG/DL (8.5-10.1); CHLORIDE 108 MMOL/L (99-107); CREATININE 1.81 MG/DL (0.60-1.10); GLUCOSE 62 MG/DL (70-104); POTASSIUM 4.6 MMOL/L (3.5-5.1); SODIUM 141 MMOL/L (135-145); TOTAL PROTEIN 4.7 G/DL (6.4-8.2); eCRCL 26 ML/MIN; eGFR 37 ML/MIN
[2024-09-25 06:33] LABS: ANISOCYTOSIS 1+; PLATELET ESTIMATE NORMAL; TOTAL CELLS COUNTED 100
[2024-09-25] MEDS: NUT.TX.GLUC.INTOLER,LAC-FR,SOY (GLUCERNA) 237 ML PO SCH (18:08)
[2024-09-26] VITALS (7 sets, daily range): BP systolic 116–147; BP diastolic 50–69; PULSE 54–79; RESP 15–17; TEMP 97.5–98.7; O2SAT 93–98
[2024-09-26 05:25] LABS: BASOPHILS % (AUTO) 0.3 % (0-1); EOSINOPHILS # (AUTO) 0.4 X10'3 (0-0.9); EOSINOPHILS % (AUTO) 3.5 % (0-6); HEMOGLOBIN 9.1 g/dl (14.0-17.9); LYMPHOCYTES # (AUTO) 1.5 X10'3 (1.1-4.8); LYMPHOCYTES % (AUTO) 13.8 % (21-51); MEAN CORPUSCULAR HEMOGLOBIN 31.4 PG (27.0-31.0); MEAN CORPUSCULAR HGB CONC 33.8 g/dL (33.0-36.5); MEAN CORPUSCULAR VOLUME 92.8 FL (78-98); MEAN PLATELET VOLUME 7.8 FL (7.4-10.4); MONOCYTES # (AUTO) 0.7 X10'3 (0-0.9); MONOCYTES % (AUTO) 6.7 % (2-12); NEUTROPHILS % (AUTO) 75.7 % (42-75); PLATELET COUNT 300 X10'3 (140-440); RED BLOOD COUNT 2.91 X10'6 (4.70-6.10); RED CELL DISTRIBUTION WIDTH 16.2 % (11.5-14.5); WHITE BLOOD COUNT 10.6 X10'3 (4.5-11.0)
[2024-09-26 05:51] LABS: ALANINE AMINOTRANSFERASE 22 U/L (12-78); ALBUMIN 2.1 G/DL (3.4-5.0); ALBUMIN/GLOBULIN RATIO 0.8 (1.1-1.5); ALKALINE PHOSPHATASE 95 IU/L (46-116); ANION GAP 4 (8-16); ASPARTATE AMINO TRANSFERASE 9 U/L (10-37); BILIRUBIN,TOTAL 0.4 MG/DL (0.1-1.0); BLOOD UREA NITROGEN 33 MG/DL (7-18); BUN/CREATININE RATIO 20.8 (10.0-20.0); CHLORIDE 108 MMOL/L (99-107); CREATININE 1.59 MG/DL (0.60-1.10); GLUCOSE 114 MG/DL (70-104); POTASSIUM 4.5 MMOL/L (3.5-5.1); SODIUM 143 MMOL/L (135-145); TOTAL CARBON DIOXIDE 31.3 MMOL/L (24-32); TOTAL PROTEIN 4.9 G/DL (6.4-8.2); eCRCL 29 ML/MIN; eGFR 43 ML/MIN
[2024-09-26] MEDS: INSULIN LISPRO 100 UNIT/ML INSULN.PEN MULTI-DOSE SQ SCH (21:00)
[2024-09-26] MEDS: insulin glargine (Lantus) pen - multi-dose SQ SCH (21:00)
[2024-09-27 06:00] VITALS: BP 93/53; PULSE 53; RESP 17; TEMP 98.4; O2SAT 96
[2024-09-27] MEDS: dextrose 50%-water 50ml dispensing syringe IV PRN (07:54)
[2024-09-27 08:54] LABS: BASOPHILS % (AUTO) 0.3 % (0-1); EOSINOPHILS # (AUTO) 0.3 X10'3 (0-0.9); EOSINOPHILS % (AUTO) 2.7 % (0-6); HEMATOCRIT 25.6 % (42.0-52.0); HEMOGLOBIN 8.5 g/dl (14.0-17.9); LYMPHOCYTES # (AUTO) 1.7 X10'3 (1.1-4.8); LYMPHOCYTES % (AUTO) 15.1 % (21-51); MEAN CORPUSCULAR HGB CONC 33.1 g/dL (33.0-36.5); MEAN CORPUSCULAR VOLUME 93.5 FL (78-98); MEAN PLATELET VOLUME 8.1 FL (7.4-10.4); MONOCYTES # (AUTO) 0.5 X10'3 (0-0.9); MONOCYTES % (AUTO) 4.3 % (2-12); NEUTROPHILS # (AUTO) 8.7 X10'3 (1.8-7.7); NEUTROPHILS % (AUTO) 77.6 % (42-75); PLATELET COUNT 325 X10'3 (140-440); RED BLOOD COUNT 2.74 X10'6 (4.70-6.10); RED CELL DISTRIBUTION WIDTH 16.5 % (11.5-14.5); WHITE BLOOD COUNT 11.3 X10'3 (4.5-11.0)
[2024-09-27] MEDS: INSULIN LISPRO 100 UNIT/ML INSULN.PEN MULTI-DOSE SQ SCH (09:00)
[2024-09-27 09:18] LABS: ALANINE AMINOTRANSFERASE 20 U/L (12-78); ALBUMIN 2.2 G/DL (3.4-5.0); ALBUMIN/GLOBULIN RATIO 0.8 (1.1-1.5); ALKALINE PHOSPHATASE 88 IU/L (46-116); ASPARTATE AMINO TRANSFERASE 14 U/L (10-37); BILIRUBIN,TOTAL 0.2 MG/DL (0.1-1.0); BLOOD UREA NITROGEN 31 MG/DL (7-18); BUN/CREATININE RATIO 19.6 (10.0-20.0); CALCIUM 7.8 MG/DL (8.5-10.1); CREATININE 1.58 MG/DL (0.60-1.10); GLUCOSE 142 MG/DL (70-104); TOTAL CARBON DIOXIDE 30.9 MMOL/L (24-32); TOTAL PROTEIN 4.9 G/DL (6.4-8.2); eCRCL 30 ML/MIN; eGFR 44 ML/MIN
[2024-09-27 09:22] LABS: ANION GAP 3 (8-16); CHLORIDE 106 MMOL/L (99-107); POTASSIUM 4.2 MMOL/L (3.5-5.1); SODIUM 140 MMOL/L (135-145)
[2024-09-27 09:31] VITALS: BP_SYST 111; PULSE 56
[2024-09-27] MEDS ORDERED: thiamine tablet PO (12:11)
[2024-09-27] MEDS ORDERED: GLIP2.5T23 PO (12:11)
[2024-09-27] MEDS ORDERED: LOP25T PO ×2 (12:11→14:45)
[2024-09-27] MEDS ORDERED: CLOP75TA34 PO (12:11)
[2024-09-27] MEDS ORDERED: SPIR25TA PO (12:11)
[2024-09-27] MEDS ORDERED: EMPA10TA PO (12:11)
[2024-09-27] MEDS ORDERED: FOLI1TAB27 PO (12:11)
[2024-09-27] MEDS ORDERED: LACT1CAP26 PO (12:16)
== END 2024-09-27 13:11 | disposition home health service (06) | DRG 268 ==
LOC: ER 18:49 → ED HOLD 09-14 02:15 → PCU 3S 09-14 23:02 → CICU 2S 09-17 16:09 → PCU 3S 09-19 18:16 → SUR 3N 09-23 21:43
PROVIDERS: ADMIT Internal Medicine Critical Care Medicine; ATTEND Family Medicine
PROC: B3251ZZ Computerized Tomography (CT Scan) of Bilateral Common Carotid Arteries using Low Osmolar Contrast (ICD-10-PCS; 2024-09-13)
PROC: B3201ZZ Computerized Tomography (CT Scan) of Thoracic Aorta using Low Osmolar Contrast (ICD-10-PCS; 2024-09-13)
PROC: B32R1ZZ Computerized Tomography (CT Scan) of Intracranial Arteries using Low Osmolar Contrast (ICD-10-PCS; 2024-09-13)
PROC: B3281ZZ Computerized Tomography (CT Scan) of Bilateral Internal Carotid Arteries using Low Osmolar Contrast (ICD-10-PCS; 2024-09-13)
PROC: B42H1ZZ Computerized Tomography (CT Scan) of Bilateral Lower Extremity Arteries using Low Osmolar Contrast (ICD-10-PCS; 2024-09-15)
PROC: 4A02XM4 Measurement of Cardiac Total Activity, External Approach (ICD-10-PCS; 2024-09-16)
PROC: 3E073KZ Introduction of Other Diagnostic Substance into Coronary Artery, Percutaneous Approach (ICD-10-PCS; 2024-09-16)
PROC: 04CL0ZZ Extirpation of Matter from Left Femoral Artery, Open Approach (ICD-10-PCS; 2024-09-17)
PROC: 04C00ZZ Extirpation of Matter from Abdominal Aorta, Open Approach (ICD-10-PCS; 2024-09-17)
PROC: 04U00JZ Supplement Abdominal Aorta with Synthetic Substitute, Open Approach (ICD-10-PCS; 2024-09-17)
PROC: 04UK0KZ Supplement Right Femoral Artery with Nonautologous Tissue Substitute, Open Approach (ICD-10-PCS; 2024-09-17)
PROC: 30233R1 Transfusion of Nonautologous Platelets into Peripheral Vein, Percutaneous Approach (ICD-10-PCS; 2024-09-17)
PROC: 30233N1 Transfusion of Nonautologous Red Blood Cells into Peripheral Vein, Percutaneous Approach (ICD-10-PCS; 2024-09-17)
PROC: 04100JK Bypass Abdominal Aorta to Bilateral Femoral Arteries with Synthetic Substitute, Open Approach (ICD-10-PCS; 2024-09-17)
PROC: 04CK0ZZ Extirpation of Matter from Right Femoral Artery, Open Approach (ICD-10-PCS; principal; 2024-09-17 12:15)
DX: T82.898A Other specified complication of vascular prosthetic devices, implants and grafts, initial encounter (principal); N17.0 Acute kidney failure with tubular necrosis; E44.0 Moderate protein-calorie malnutrition; I74.5 Embolism and thrombosis of iliac artery; Z68.1 Body mass index [BMI] 19.9 or less, adult; E87.20 Acidosis, unspecified; I50.42 Chronic combined systolic (congestive) and diastolic (congestive) heart failure; I69.954 Hemiplegia and hemiparesis following unspecified cerebrovascular disease affecting left non-dominant side; E78.00 Pure hypercholesterolemia, unspecified; E11.51 Type 2 diabetes mellitus with diabetic peripheral angiopathy without gangrene; J43.9 Emphysema, unspecified; I11.0 Hypertensive heart disease with heart failure; E87.5 Hyperkalemia; I70.0 Atherosclerosis of aorta; Y83.1 Surgical operation with implant of artificial internal device as the cause of abnormal reaction of the patient, or of later complication, without mention of misadventure at the time of the procedure; Z87.891 Personal history of nicotine dependence; I25.2 Old myocardial infarction; Y92.89 Other specified places as the place of occurrence of the external cause
CPT/HCPCS: 36415; 36430; 36600; 70450; 70496; 70498; 71045; 75635; 78452; 80047; 80048; 80053; 80061; 80305; 80320; 81001; 82150; 82803; 82948; 83036; 83690; 83735; 83880; 84100; 84132; 84484; 85007; 85018; 85025; 85610; 85730; 86885; 86900; 86901; 86920; 87081; 88300; 92508; 92616; 93005; 93017; 93308; 93880; 93926; 93970; 93971; 94002; 94003; 94640; 94760; 97110; 97116; 97161; 97530; 97535; 99291; A4615; A4618; A6213; A6258; A6449; A7000; A9500; C1758; G0378; J0360; J0690; J0694; J1100; J1171; J1644; J1815; J2250; J2270; J2405; J2597; J2704; J2720; J2785; J3010; J3411; J3480; J3490; J7030; J7040; J7050; J7120; L8670; P9016; P9035; P9045; Q9967